=== PATIENT | female | born 1945 ===

== ENCOUNTER 2019-11-23 09:52 | Emergency (ER) | payer OTHER ==
[~2019-11-23] VITALS: Ht 170.2 cm; Wt 68.9 kg
== END 2019-11-23 13:16 | disposition home or self-care (01) ==
LOC: ER 09:52
DX: L02.512 Cutaneous abscess of left hand (principal); L03.012 Cellulitis of left finger

== ENCOUNTER 2021-10-04 16:45 | Emergency (ER) | payer OTHER ==
[~2021-10-04] VITALS: Ht 170.2 cm; Wt 69.9 kg
[2021-10-04] MEDS ORDERED: DICLOFENAC SODI75 MG PO (18:06)
== END 2021-10-04 18:15 | disposition home or self-care (01) ==
LOC: ER 16:45
DX: S92.911A Unspecified fracture of right toe(s), initial encounter for closed fracture (principal); X58.XXXA Exposure to other specified factors, initial encounter; Y92.013 Bedroom of single-family (private) house as the place of occurrence of the external cause